=== PATIENT | female | born 1960 ===

== ENCOUNTER 2020-08-24 02:54 | Emergency (ER) | payer MEDICARE ==
[~2020-08-24] VITALS: Ht 157.5 cm; Wt 90.7 kg
[~2020-08-24 02:54] MED LIST: HYDR1TAB94 PO
[2020-08-24] MEDS ORDERED: TRAM50 PO (03:22)
[2020-08-24] MEDS ORDERED: Ventolin/Prove6.7 GM INH (03:23)
[2020-08-24] MEDS ORDERED: Alprazolam1 MG PO (03:24)
[2020-08-24] MEDS ORDERED: CODACE30 (03:25)
[2020-08-24] MEDS ORDERED: Percocet 5-3251 EACH PO (04:12)
== END 2020-08-24 04:54 | disposition home or self-care (01) ==
LOC: ER 02:54
DX: S42.201A Unspecified fracture of upper end of right humerus, initial encounter for closed fracture (principal); S62.161A Displaced fracture of pisiform, right wrist, initial encounter for closed fracture; F17.210 Nicotine dependence, cigarettes, uncomplicated; Z88.0 Allergy status to penicillin; Z88.2 Allergy status to sulfonamides; Z88.6 Allergy status to analgesic agent; W10.9XXA Fall (on) (from) unspecified stairs and steps, initial encounter; Y93.01 Activity, walking, marching and hiking; Y92.89 Other specified places as the place of occurrence of the external cause
CPT/HCPCS: 29125; 73030; 73080; 73110; 96372-59; 99283-25; J1170